=== PATIENT | female | born 1945 | race Caucasian/White ===

== ENCOUNTER 2024-04-05 12:42 | Outpatient (AMB) | payer MEDICARE, SELFPAY ==
[2024-04-05 13:10] VITALS: BMI 17.2
--- NOTE | 2024-04-05 13:10 | A.SPINEOV_ITS ---
Vital Signs 04/05/24 13:10 Height 4 ft 11 in Weight 85 lb BMI 17.2 Intake Visit Reasons: neck and low back pain Intake Note: Mrs. Felix is here today c/o Neck and low back pain. Or First Assist Registered Nurse Required: No Allergies Sulfa (Sulfonamide Antibiotics) Allergy (Severe, Verified 04/05/24 13:12) Anaphylaxis latex Allergy (Mild, Verified 04/05/24 13:12) Swelling Penicillins Allergy (Mild, Verified 04/05/24 13:12) Rash Physical Exam Vital Signs: BMI result Body Mass Index 17.2 Assessment & Plan Assessment & Plan (1) Cervical disc disorder: Code(s): M50.90 - Cervical disc disorder, unspecified, unspecified cervical region Category: Medical (2) Back pain: Code(s): M54.9 - Dorsalgia, unspecified Category: Medical Plan This is a 78-year-old self-referred female who presents to the office today for evaluation of chronic neck pain which has been going on for many many years. For last 5 years it has been getting significantly worse. She feels it basically from the base of her skull all the way down along her posterior cervical spine into her trapezius. Occasional tingling down her left arm but otherwise the main symptom is neck pain. She has a lot of difficulty sleeping at night. She did go through physical therapy, senior care assistant as well as a series of cortisone injections and ablations all with no help. She has lost a lot of function of her neck range of motion over the years as well. She takes nonsteroidal anti-inflammatories, Tylenol etc.. Nothing seems to help. She did see Dr. Diaz and Dr Garnica at [facility] and both told her she was not a surgical candidate. She comes here today for 3rd opinion. PMH: History of osteoporosis, overactive bladder, IBS, osteoarthritis, hypertension, high cholesterol, migraines, hysterectomy, septoplasty, basal cell excision on her left nose Social hx: She has not smoke, drink use any recreational drugs Medications: Oxybutynin, raloxifene, diltiazem, pravastatin, omeprazole, Fioricet, calcium Allergies: Penicillin, sulfa and latex Physical exam: She is awake alert oriented no acute distress, she is frail cachectic appearing, she appears to have lost significant amount of muscle mass on the side of her neck with atrophy. She has a resting kyphotic position of her head and neck. She has severe arthritis in her hands so she has weakness related to that but I do not sense any true neurological weakness. She could not extend her fingers fully secondary to the arthritis. Her proximal muscle groups of the deltoids and biceps and triceps are full. She has some weakness of her iliopsoas which I would rate as 4-5. Distal lower extremity strength is full. She has 3+ symmetric reflexes in the upper and lower extremities with no clonus and no Gutierrez's sign. Imaging review: She has a cervical MRI done at [facility] showing reversal of the normal cervical lordotic curvature with a significant kyphotic deformity with the apex at C3-4 and C4-5. She has multilevel degenerative disc disease with what appears to be a grade 1 spondylolisthesis at C3-4. There is moderate central canal stenosis but no cord signal change seen. Impression: 78-year-old female with chronic neck pain and severe deformity of her cervical spine with kyphotic curvature and what looks like a grade 1 spondylolisthesis at C3-4. She has a history of osteoporosis. She has been seen by 2 other surgeons who both told her she was not a surgical candidate. She has been through numerous rounds of conservative treatment. I sent the patient for flexion-extension x-rays. We can see the neck has very limited range of motion and there is some slight translation at C3-4 with flexion. There is no evidence of fusion of C4-5 but it looks like there maybe fusion at C5-6 and C6-7. Dr. Pradhan would like to get a noncontrast CT to take a better look at the quality of the bones and see if there is any auto fusion over these segments. Once that is completed we will see her back. Thank you for allowing us to care for your patient. The total time spent with this visit with this patient was 45 minutes reviewing history, physical exam, cervical MRI imaging review, and implementation of treatment plan or further diagnostic testing Star Pradhan MD,PhD [facility] Orders: Orders XR lumbar spine 4V min Today M54.9 - Dorsalgia, unspecified CT cervical spine wo IV con Today M50.90 - Cervical disc disorder, unspecified, unspecified cervical region XR cervical spine 4V Today M50.90 - Cervical disc disorder, unspecified, unspecified cervical region Coding Level of Care Code New Pt Level 4 (94699) Diagnoses Cervical disc disorder M50.90 Back pain M54.9
--- OUTSIDE RECORDS SUMMARY | 2024-04-10 08:27 | XMS_ITS | Continuity of Care Document ---
Author Organization [facility] ter Address [address] [place] [id number]- Care Team Providers Care Hydraulics Engineer Name Role Phone Esteban Hill MD Primary Care Physician Encounter 03/31/24 - 04/01/[address] [address]- Attending Physician: Not on Staff, Attending MD Referring Physician: Not on Staff, Referring MD Encounter Type: [facility] Allergies, Adverse Reactions, Alerts Substance Criticality Severity Reaction Reaction Severity Status sulfADIAZINE Active penicillins Active Latex Unable to assess criticality Persistent Moderate Active Medications aspirin 81 mg oral delayed release tablet 81 mg, 1, tablet, By Mouth, Daily, # 30 tablet, Refills 0, Maintenance, 11/03/20 1:18:00 PM EDT, Partial fill upon patient request if the prescription is for a schedule II opioid drug. Start Date: 11/03/20 Status: Ordered Quantity: 30.0 Unit: tablet Repeat number: 1 diltiazem 180 mg/24 hours oral capsule, extended release 180 mg, 1, capsule, By Mouth, Daily, # 30 capsule, Refills 0, Tot. Refills 0, Maintenance, 07/12/19 3:59:00 PM EDT, Route to Pharmacy Electronically, [facility]/pharmacy #[id number], 152, cm, 07/12/19 9:28:00 EDT,Height, 53.5, kg, 07/12/19 8:37:00 EDT, Dry Weight Start Date: 07/12/19 Status: Ordered Quantity: 30.0 Unit: capsule Repeat number: 1 Fioricet Tablet 1 tablet, By Mouth, Every 4 hours, PRN Headache, 0 Refills, Maintenance, 07/12/19 9:04:00 AM EDT, Tablet Start Date: 07/12/19 Status: Ordered Repeat number: 1 Lomotil 0.025 mg-2.5 mg oral tablet 1, tablet, By Mouth, 4 times a day, PRN, Refills 0, Maintenance, for loose stool, 07/12/19 8:59:00 AM EDT, Tablet Start Date: 07/12/19 Status: Ordered Repeat number: 1 meloxicam 15 mg oral tablet 1 tablet = 15 mg, By Mouth, Daily, # 30 tablet, 0 Refills, Maintenance, 07/12/19 9:01:00 AM EDT, Tablet Start Date: 07/12/19 Status: Ordered Quantity: 30.0 Unit: tablet Repeat number: 1 nitrofurantoin macrocrystals-monohydrate 100 mg oral capsule 1 capsule = 100 mg, By Mouth, 2 times a day, # 14 capsule, 0 Refills, Maintenance, 07/12/19 9:12:00 AM EDT, Capsule Start Date: 07/12/19 Stop Date: 07/19/19 Status: Ordered Quantity: 14.0 Unit: capsule Repeat number: 1 omeprazole 20 mg oral enteric coated capsule 1 capsule = 20 mg, By Mouth, Daily, # 30 capsule, 0 Refills, Maintenance, 07/12/19 9:01:00 AM EDT, EC Capsule Start Date: 07/12/19 Status: Ordered Quantity: 30.0 Unit: capsule Repeat number: 1 oxybutynin 5 mg oral tablet 1 tablet = 5 mg, By Mouth, 3 times a day, 0 Refills, Maintenance, 07/12/19 9:00:00 AM EDT Start Date: 07/12/19 Status: Ordered Repeat number: 1 pravastatin 40 mg oral tablet 1 tablet = 40 mg, By Mouth, Daily, # 30 tablet, 0 Refills, Maintenance, 07/12/19 9:02:00 AM EDT, Tablet Start Date: 07/12/19 Status: Ordered Quantity: 30.0 Unit: tablet Repeat number: 1 raloxifene 60 mg oral tablet 1 tablet = 60 mg, By Mouth, Daily, # 30 tablet, 0 Refills, Maintenance, 07/12/19 8:58:00 AM EDT, Tablet Start Date: 07/12/19 Status: Ordered Quantity: 30.0 Unit: tablet Repeat number: 1 rizatriptan 10 mg oral tablet 1 tablet = 10 mg, By Mouth, Once, PRN as needed for migraine headache, may repeat in 2 hours if response unsatisfactory, # 12 tablet, 0 Refills, Maintenance, 07/12/19 9:03:00 AM EDT, Tablet Start Date: 07/12/19 Status: Ordered Quantity: 12.0 Unit: tablet Repeat number: 1 Tylenol Extra Strength 500 mg oral tablet 2 tablet = 1,000 mg, By Mouth, Every 4 hours, PRN for fever, # 120 tablet, 0 Refills, Maintenance, 07/12/19 9:04:00 AM EDT, Tablet Start Date: 07/12/19 Status: Ordered Quantity: 120.0 Unit: tablet Repeat number: 1 Vitamin D2 2000 intl units oral capsule 1 capsule = 2,000 International_Units, By Mouth, Daily, with food, # 60 capsule, 0 Refills, Maintenance, 07/12/19 9:06:00 AM EDT, Capsule Start Date: 07/12/19 Status: Ordered Quantity: 60.0 Unit: capsule Repeat number: 1 Patient Care team information Care Team Personnel Name: Esteban Hill MD Position: [facility] Outreach Member Role: PCP Address: [address] [place] [address] Telecom: Care Team Related Persons Name: LA HARRY Insurance Providers Guarantor name: RAMA HARRY Health Plan Information #: 1 P[place] Member Number: NA Policy Number: NA Group Number: NA Health Plan Information #: 2 Payer: MEDEX Member Number: NA Policy Number: NA Group Number: NA
== END 2024-04-05 14:31 | disposition home or self-care (01) ==
PROVIDERS: PCP Internal Medicine; Visit Provider Physician Assistant
DX: M50.90 Cervical disc disorder, unspecified, unspecified cervical region (principal); M54.9 Dorsalgia, unspecified
CPT/HCPCS: 99204

== ENCOUNTER 2024-04-05 12:42 | Outpatient (REF) | payer MEDICARE, SELFPAY | END 2024-04-05 12:43 | disposition home or self-care (01) | LOC: HO.HOSX 12:42 | PROVIDERS: PCP Internal Medicine; Visit Provider Physician Assistant | DX: M50.90 Cervical disc disorder, unspecified, unspecified cervical region (principal); M54.9 Dorsalgia, unspecified | CPT/HCPCS: 72050; 72110; 99202 ==

== ENCOUNTER 2024-05-17 11:14 | Outpatient (AMB) | payer MEDICARE, SELFPAY ==
--- NOTE | 2024-05-17 11:53 | A.SPINEOV_ITS ---
Intake Visit Reasons: MRI f/u with in office Intake Note: Mrs. Felix is here today to F/u on the results to her MRI. [employer] Required: No Allergies Sulfa (Sulfonamide Antibiotics) Allergy (Severe, Verified 04/05/24 13:12) Anaphylaxis latex Allergy (Mild, Verified 04/05/24 13:12) Swelling Penicillins Allergy (Mild, Verified 04/05/24 13:12) Rash Assessment & Plan Assessment & Plan (1) Cervical disc disorder: Code(s): M50.90 - Cervical disc disorder, unspecified, unspecified cervical region Category: Medical Plan Mrs Felix came back in today to review her CT scan done at [facility]. Dr. Pradhan and I reviewed it together and unfortunately her bone quality so poor that if we were to do an anterior and posterior cervical fusion we believe that the screws would just pull out and the whole construct would fall apart. Unfortunately he does not have any surgery to offer her for her neck problems. We reviewed her CT with her and discuss alternate treatment options including pain management. Total amount of time spent in this visit was 20 minutes in discussion of symptoms, cervical CT imaging results and subsequent plan of care Star Pradhan MD,PhD [facility] Coding Level of Care Code Est Pt Level 3 (53919) Diagnoses Cervical disc disorder M50.90
--- OUTSIDE RECORDS SUMMARY | 2024-05-17 13:40 | XMS_ITS | Continuity of Care Document ---
Author Organization [facility] Address [address] [place] [address]- Care Team Providers Care Convention Services Director Name Role Phone Sergio BLACK, Esteban Elizabeth Primary Care Physician Encounter 04/12/24 - 04/19/24 [facility] [address], [address] [place] [address]- Attending Physician: Star Nelson Admitting Physician: Star Nelson Referring Physician: Star Nelson Encounter Type: OutPatient One Time Allergies, Adverse Reactions, Alerts Substance Criticality Severity [...] 3:59:00 PM EDT, Route to Pharmacy Electronically, [facility]/pharmacy #[id number], 152, cm, 07/12/19 9:28:00 EDT,Height, 53.5, kg, [...] Quantity: 60.0 Unit: capsule Repeat number: 1 Results Radiology Reports * Exam Date Time Procedure Performing Provider Status 04/12/24 12:[address] Cervical Spine W/O Contrast Kamar a , Donna; Auth (Verified) Notes: (CT Cervical Spine W/O Contrast) Reason For Exam: M50.90 CERVICAL DISC DISORDER RESULT: CT Cervical Spine W/O Contrast CT Cervical Spine W/O Contrast Reason: M50.90 CERVICAL DISC DISORDER; Clinical Question(s): Other: TECHNIQUE: Spiral CT of the cervical spine without contrast, formatted in 3 planes. Weight-based protocol using automatic tube modulation was used to optimize exposure parameters. RADIATION DOSE PARAMETERS: CTDIvol Body: 5.33 mGy, DLP Body: 105 mGy*cm. COMPARISON: MRI cervical spine without contrast dated 03/31/2024 and 11/09/2019. FINDINGS: Spine: Redemonstrated is reversal of the cervical lordosis, similar to recent and prior MRI dating back [id number]. No acute fracture or acute subluxation seen. There is mild anterolisthesis of C2 over C3 and C3 over C4, similar to prior studies, likely degenerative. Moderate intervertebral disc space narrowing at C4-C5, C5-C6 and C6-C7 with associated endplate irregularity and osteophyte formation again noted. Multilevel bilateral facet arthropathy noted, most prominent at bilateral C2-3 level (severe degree) with fusion of the left C2-3 facet joint.. Soft tissues and lung apices: Mild subpleural foci of atelectasis/scarring in bilateral lung apices. Few tiny foci of [id number] opacities in bilateral lung apices, left greater than right, as also seen on prior CT chestfrom May,. The thyroid gland is unremarkable. Patient is post left maxillary antrostomy. Diffuse mucoperiosteal thickening and partial opacification of the left maxillary sinus, likely due to chronic sinusitis.The prevertebral soft tissues are unremarkable. IMPRESSION: Moderate chronic degenerative changes in the cervical spine with reversal of the cervical lordosis,as described above, similar to recent and prior MRI. Degenerative fusion of the left C2-3 facet joint. WSN: [id number] Ordering Physician: Star Best Dictated By: Mayelin Espinoza MD Dictated Date/Time: 04/12/24 12:59 p Reviewed By: Mayelin Espinoza MD Signed By: Mayelin Espinoza MD Signed Date/Time: 04/12/24 12:59 pm Transcribed By: THANG Transcribed Date/Time: 04/12/24 12:49 pm Patient Care team information Care Team Personnel Name: Esteban Hill MD Position: [facility] Outreach Member Role: PCP Address: [address] [place] [address] - [address] [employer], [address] Telecom: Care Team Related Persons Name: LA HARRY Insurance Providers Guarantor name: RAMA HARRY Health Plan Information #: 1 [place] Member Number: [id number] Policy Number: NA Group Number: NA Health Plan Information #: 2 Payer: MEDEX Member Number: [id number] Policy Number: NA Group Number: [id number]
== END 2024-05-17 12:28 | disposition home or self-care (01) ==
PROVIDERS: PCP Internal Medicine; Visit Provider Physician Assistant
DX: M50.90 Cervical disc disorder, unspecified, unspecified cervical region (principal)
CPT/HCPCS: 99213

== ENCOUNTER → 2024-05-17 11:14 | Outpatient (BNVA) | payer MEDICARE, SELFPAY | PROVIDERS: PCP Internal Medicine; Visit Provider Physician Assistant | DX: M50.90 Cervical disc disorder, unspecified, unspecified cervical region (principal) | CPT/HCPCS: 99212 ==